=== PATIENT | male | born 1980 ===

== ENCOUNTER 2017-11-13 23:23 | Emergency (ER) | payer OTHER ==
[2017-11-13 23:33] VITALS: TEMP 98.9
[2017-11-13] MEDS ORDERED: Sodium Chloride 0.9% 1,000 ML IV STA (23:46)
--- NOTE | 2017-11-13 23:47 | ED PDOC ---
HPI: General Adult Time Seen by Provider: 11/13/17 23:46 Chief Complaint (Nursing): Back Pain Chief Complaint (Provider): flank pain History Per: Patient, Family (patient's brother at bedside is translating for patient in [place]) Additional Complaint(s): 37-year-old male with no past medical history presents to emergency department with acute onset of left flank pain that radiates to left lower quadrant starting about 4 hours ago. Patient is nauseous with no vomiting, no fever or chills. Patient arrives with his brother. PMD: none Past Medical History Reviewed: Historical Data, Nursing Documentation, Vital Signs Vital Signs: Last Vital Signs Temp 98.9 F 11/13/17 23:30 Pulse 91 H 11/13/17 23:30 Resp 16 11/13/17 23:30 BP 131/65 11/13/17 23:30 Pulse Ox 100 11/14/17 01:14 - Medical History PMH: No Chronic Diseases - Surgical History Surgical History: No Surg Hx - Family History Family History: States: No Known Family Hx - Living Arrangements Living Arrangements: With Family - Social History Current smoker - smoking cessation education provided: No Alcohol: None Drugs: Denies - Immunization History Hx Tetanus Toxoid Vaccination: No (pt does not remember last vaccine) - Home Medications Home Medications: Ambulatory Orders Medication Instructions Recorded Naproxen 500 mg PO Q12 #28 tab 08/25/15 Naproxen [Naprosyn] 500 mg PO BID #20 tab 11/14/17 Tamsulosin [Flomax] 0.4 mg PO DAILY #7 cap 11/14/17 - Allergies Allergies/Adverse Reactions: Allergies Allergy/AdvReac Type Severity Reaction Status Date / Time No Known Allergies Allergy Verified 11/13/17 23:30 Review of Systems ROS Statement: Except As Marked, All Systems Reviewed And Found Negative Constitutional: Negative for: Fever, Chills Gastrointestinal: Positive for: Nausea, Abdominal Pain. Negative for: Vomiting Genitourinary Male: Negative for: Dysuria, Frequency, Incontinence, Hematuria Musculoskeletal: Positive for: Back Pain Physical Exam - Reviewed Nursing Documentation Reviewed: Yes Vital Signs Reviewed: Yes - Physical Exam Appears: Positive for: Well, Non-toxic, In Acute Distress Skin: Negative for: Rash Eye Exam: Positive for: Normal appearance Cardiovascular/Chest: Positive for: Regular Rate, Rhythm Respiratory: Positive for: Normal Breath Sounds Gastrointestinal/Abdominal: Positive for: Soft, Tenderness (left lower quadrant) . Negative for: Distended, Guarding, Rebound Back: Positive for: L CVA Tenderness. Negative for: R CVA Tenderness, Vertebral Tenderness Extremity: Positive for: Normal ROM Neurologic/Psych: Positive for: Alert, Oriented - Laboratory Results Result Diagrams: 11/14/17 00:02 11/14/17 00:02 Urine dip results: Positive for: Blood (small), Ketones. Negative for: Leukocyte Esterase, Nitrate, Glucose, Bilirubin, Protein - ECG O2 Sat by Pulse Oximetry: 100 Pulse Ox Interpretation: Normal - Other Rad CT abd and pelvis without contrast X-Ray: Read By Radiologist X-Ray Interpretation: see below Medical Decision Making Medical Decision Makin37 year old male with left flank pain Plan: CBC CMP IVF IV zofran IV toradol CT abdomen and pelvis without contrast Urine dip CT: FINDINGS: Limitations: Lack of intravenous contrast. Lower thorax: Minimal atelectasis/scarring. RLL calcified granuloma. ABDOMEN: Liver: Unremarkable. Gallbladder and bile ducts: No calcified stones. No ductal dilation. Pancreas: Unremarkable. No ductal dilation. Spleen: No splenomegaly. Adrenals: No mass. Kidneys and ureters: No renal calculi. Mild pelvocaliectasis of LEFT kidney. Mildly dilated LEFT ureter. 0.2 x 0.2 x 0.2 cm calculus at/near LEFT ureterovesical junction. Stomach and bowel: Probable underdistention of LEFT colon. No definite mural thickening. No obstruction. Appendix: Normal caliber. No inflammation. PELVIS: Bladder: Unremarkable. No stones. Reproductive : Unremarkable as visualized. ABDOMEN and PELVIS: Intraperitoneal space: No significant fluid collection. No free air. Bones/joints: No acute fracture. Soft tissues: Unremarkable. Vasculature: Unremarkable. No aneurysm. Lymph nodes : No pathologically enlarged lymph nodes. IMPRESSION: 1. LEFT distal ureteral calculus with mild hydroureteronephrosis. 2. Incidental/non-acute findings are described above. Patient feels better after meds were given in ED. He is aware of CT results. All questions answered. Prescriptions given for Flomax and Naprosyn. Patient was referred to clinic and urology computational biologist for follow up. Disposition - Clinical Impression Clinical Impression: Ureteral colic - Patient ED Disposition Is Patient to be Admitted: No Counseled Patient/Family Regarding: Studies Performed, Diagnosis, Need For Followup, Rx Given - Disposition Referrals: [facility] [Provider Group] Jael Allen MD [Medical Doctor] - Disposition: Routine/Home Disposition Time: 02:19 Condition: IMPROVED Additional Instructions: Drink plenty of fluids. Take meds as directed. Follow up with clinic or with urologist. Prescriptions: Naproxen [Naprosyn] 500 mg PO BID #20 tab Tamsulosin [Flomax] 0.4 mg PO DAILY #7 cap Instructions: Renal Colic (DC) Forms: [employer] (Australian) Print Language: GAMBIAN Results - Lab Results Lab Results: 11/14/17 11/14/17 00:02 00:02 WBC 14.4 H RBC 4.87 Hgb 14.5 Hct 42.4 MCV 87.0 MCH 29.7 MCHC 34.1 RDW 13.2 Plt Count 268 MPV 8.9 Neut % (Auto) 75.9 H Lymph % (Auto) 14.5 L Storey % (Auto) 7.7 Eos % (Auto) 1.0 Baso % (Auto) 0.9 Neut # (Auto) 11.0 H Lymph # (Auto) 2.1 Storey # (Auto) 1.1 H Eos # (Auto) 0.1 Baso # (Auto) 0.1 Sodium 141 Potassium 4.4 Chloride 100 Carbon Dioxide 28 Anion Gap 17 BUN 20 Creatinine 1.2 Est GFR ( Amer) > 60 Est GFR (Non-Af Amer) > 60 Random Glucose 123 H Calcium 9.8 Total Bilirubin 0.5 AST 36 ALT 46 Alkaline Phosphatase 69 Total Protein 7.8 Albumin 4.5 Globulin 3.4 Albumin/Globulin Ratio 1.3
[2017-11-14 00:06] LABS: BASO # 0.1 K/uL (0.0-0.2); BASO % 0.9 % (0.0-2.0); EOS # 0.1 K/uL (0.0-0.7); HEMOGLOBIN 14.5 g/dL (12.0-18.0); LYMPH # 2.1 K/uL (1.0-4.3); LYMPH % 14.5 % (20.0-40.0); MEAN CORPUSCULAR HEMOGLOBIN 29.7 pg (27.0-31.0); MEAN CORPUSCULAR HGB CONC 34.1 g/dL (33.0-37.0); MEAN PLATELET VOLUME 8.9 fl (7.2-11.7); MONO # 1.1 K/uL (0.0-0.8); MONO % 7.7 % (0.0-10.0); NEUT % 75.9 % (50.0-75.0); NRBC % 0.1 % (0.0-0.0); RBC 4.87 Mil/uL (4.40-5.90); RED CELL DISTRIBUTION WIDTH 13.2 % (11.5-14.5); WHITE BLOOD COUNT 14.4 K/uL (4.8-10.8)
[2017-11-14 00:14] LABS: ALB/GLOB RATIO 1.3 (1.0-2.1); ALBUMIN 4.5 g/dL (3.5-5.0); ALT/SGPT 46 U/L (21-72); AST/SGOT 36 U/L (17-59); BLOOD UREA NITROGEN 20 mg/dl (9-20); CALCIUM 9.8 mg/dL (8.4-10.2); GFR AFRICAN-AMERICAN > 60; GFR NON-AFRICAN AMERICAN > 60
--- NOTE | 2017-11-14 01:01 | CT ---
EXAM: CT Abdomen and Pelvis Without Intravenous Contrast CLINICAL HISTORY: 37 years old, male; Pain; Abdominal pain; Flank; Left; Additional info: Left flank pain TECHNIQUE: Axial computed tomography images of the abdomen and pelvis without intravenous contrast. All CT scans at this facility use one or more dose reduction techniques, viz.: automated exposure control; ma/kV adjustment per patient size (including targeted exams where dose is matched to indication; i.e. head); or iterative reconstruction technique. Coronal and sagittal reformatted images were created and reviewed. COMPARISON: No relevant prior studies available. FINDINGS: Limitations: Lack of intravenous contrast. Lower thorax: Minimal atelectasis/scarring. RLL calcified granuloma. ABDOMEN: Liver: Unremarkable. Gallbladder and bile ducts: No calcified stones. No ductal dilation. Pancreas: Unremarkable. No ductal dilation. Spleen: No splenomegaly. Adrenals: No mass. Kidneys and ureters: No renal calculi. Mild pelvocaliectasis of LEFT kidney. Mildly dilated LEFT ureter. 0.2 x 0.2 x 0.2 cm calculus at/near LEFT ureterovesical junction. Stomach and bowel: Probable underdistention of LEFT colon. No definite mural thickening. No obstruction. Appendix: Normal caliber. No inflammation. PELVIS: Bladder: Unremarkable. No stones. Reproductive: Unremarkable as visualized. ABDOMEN and PELVIS: Intraperitoneal space: No significant fluid collection. No free air. Bones/joints: No acute fracture. Soft tissues: Unremarkable. Vasculature: Unremarkable. No aneurysm. Lymph nodes: No pathologically enlarged lymph nodes. IMPRESSION: 1. LEFT distal ureteral calculus with mild hydroureteronephrosis. 2. Incidental/non-acute findings are described above.
[2017-11-14] MEDS ORDERED: Sodium Chloride 0.9% 1,000 ML IV STA (01:14)
[2017-11-14 03:57] VITALS: BP 116/80; PULSE 72; RESP 20; O2SAT 98
== END 2017-11-14 03:56 | disposition home or self-care (01) ==
LOC: H.ER 23:23
DX: N13.2 Hydronephrosis with renal and ureteral calculous obstruction (principal)
CPT/HCPCS: 74176; 80053; 85025; 96360; 99283; J1885; J2405; J7040

== ENCOUNTER 2018-04-05 12:27 | Emergency (ER) | payer OTHER ==
[2018-04-05 12:40] VITALS: BP 131/75; PULSE 55; RESP 16; TEMP 98.7; O2SAT 100
[2018-04-05] MEDS ORDERED: Tdap Vaccine 0.5 ml Vial (10-64 yrs) IM ONE ×2 (12:47→13:36)
[2018-04-05] MEDS ORDERED: Liquid Adhesive TOP ONE (12:53)
--- NOTE | 2018-04-05 13:09 | ED PDOC ---
HPI: Head Injury Time Seen by Provider: 04/05/18 12:42 Chief Complaint (Nursing): Abnormal Skin Integrity History Per: Patient Additional Complaint(s): Pt. states earlier today at approximately 1000 he was playing soccer when he was accidentally struck in the nose by another player with their forearm. Since then he's had pain and swelling to the nose. Denies LOC, headache, N/V, neck pain, other injury, anticoagulant use. Past Medical History Reviewed: Historical Data, Nursing Documentation, Vital Signs Vital Signs: Last Vital Signs Temp 98.7 F 04/05/18 12:38 Pulse 55 L 04/05/18 12:38 Resp 16 04/05/18 12:38 BP 131/75 04/05/18 12:38 Pulse Ox 100 04/05/18 12:38 - Family History Family History: States: Unknown Family Hx - Immunization History Hx Tetanus Toxoid Vaccination: No (pt does not remember last vaccine) - Home Medications Home Medications: Ambulatory Orders Medication Instructions Recorded Naproxen 500 mg PO Q12 #28 tab 08/25/15 Naproxen [Naprosyn] 500 mg PO BID #20 tab 11/14/17 Tamsulosin [Flomax] 0.4 mg PO DAILY #7 cap 11/14/17 Amoxicillin/Clavulanate [Augmentin 1 tab PO BID #20 tab 04/05/18 500 MG-125 MG] - Allergies Allergies/Adverse Reactions: Allergies Allergy/AdvReac Type Severity Reaction Status Date / Time No Known Allergies Allergy Verified 11/13/17 23:30 Review of Systems ROS Statement: Except As Marked, All Systems Reviewed And Found Negative ENT: Positive for: Nose Pain Physical Exam - Physical Exam Appears: Positive for: Well, Non-toxic, No Acute Distress Skin: Positive for: Normal Color, Warm. Negative for: Rash Eye Exam: Positive for: Normal appearance, EOMI, PERRL. Negative for: Periorbital swelling, Periorbital tenderness ENT: Positive for: TM Is/Are (no hemotympanum b/l), Other (moderate nasal swelling and tenderness; 0.5cm superficial slightly linear laceration without active bleeding; no septal hematoma b/l) Neck: Positive for: Normal, Painless ROM Neurologic/Psych: Positive for: Alert, Oriented (x3), Gait (steady, unassisted) . Negative for: Aphasia, Facial Droop - ECG O2 Sat by Pulse Oximetry: 100 - Progress ED Course And Treament: Tetanus prophylaxis administered as pt. does not know his tetanus status. Nasal bones x-rays ordered. Procedures - Time-Out Type of Procedure: Laceration repair Site of Procedure: nose Correct Patient (with visual ID + MR# on ID Band): Yes Correct Procedure: Yes PA/Tech: [place] - Laceration/Wound Repair Laceration repair Wound Length (cm): 1 Wound's Depth, Shape: superficial, linear Wound Explored: clean Irrigated w/ Saline (ccs): 50 Wound Repaired With: Skin adhesive Wound Complexity: Simple Disposition - Clinical Impression Clinical Impression: Nasal fracture, Head injury, Facial laceration - Patient ED Disposition Is Patient to be Admitted: No - Disposition Referrals: [facility] [place] [Outside] Gregg Carias MD [Staff Provider] - Disposition: Routine/Home Disposition Time: 13:44 Condition: IMPROVED Additional Instructions: NATALIE WARD, thank you for letting us take care of you today. Your provider was Yuriy Becerra MD and you were treated for LACERATION ON NOSE. The emergency medical care you received today was directed at your acute symptoms. If you were prescribed any medication, please fill it and take as directed. It may take several days for your symptoms to resolve. Return to the Emergency Department if your symptoms worsen, do not improve, or if you have any other problems. Please contact your doctor or call one of the physicians/clinics you have been referred to that are listed on the Patient Visit Information form that is included in your discharge packet. Bring any paperwork you were given at discharge with you along with any medications you are taking to your follow up visit. Our treatment cannot replace ongoing medical care by a primary care provider outside of the emergency department. Thank you for allowing the [facility] team to be part of your care today. If you had an X-Ray or CT scan: A Radiologist will review the ED reading if any change in treatment is needed we will contact you. If you had a blood, urine, or wound culture: It will take several days for the results, if any change in treatment is needed we will contact you. If you had an STI test: It will take 48 hours for the results. Please call after 1 week if you have not heard back. Prescriptions: Amoxicillin/Clavulanate [Augmentin 500 MG-125 MG] 1 tab PO BID #20 tab Instructions: Laceration Repair With Glue (DC), Closed Head Injury (DC), Nose Fracture (DC) Forms: [employer] (Japanese) Print Language: HUNGARIAN
--- NOTE | 2018-04-05 14:47 | RAD ---
Date of service: 04/05/2018 PROCEDURE: Radiographs of Nasal Bones HISTORY: trauma COMPARISON: None available. TECHNIQUE: Frontal and lateral radiographs of the nasal bones. FINDINGS: There is a depressed comminuted distal nasal fracture. The bony nasal septum appears intact. The anterior maxillary spine appears intact. IMPRESSION: Comminuted, depressed nasal fracture.
== END 2018-04-05 13:55 | disposition home or self-care (01) ==
LOC: H.ER 12:27
DX: S01.81XA Laceration without foreign body of other part of head, initial encounter (principal); S02.2XXA Fracture of nasal bones, initial encounter for closed fracture; W22.8XXA Striking against or struck by other objects, initial encounter; Y93.66 Activity, soccer

== ENCOUNTER 2018-10-26 06:35 | Emergency (ER) | payer OTHER ==
[2018-10-26 06:45] VITALS: TEMP 97.7; O2SAT 100
[2018-10-26 06:48] VITALS: BMI 24.2
[2018-10-26 06:58] VITALS: RESP 18
--- NOTE | 2018-10-26 07:32 | ED PDOC ---
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 Patient reports pain on the right side but states he will occasionally have left sided back pain too. Nothing aggravates or alleviates or pain. Patient states he did not take any medication for symptoms. Patient was seen on 11/14/17 for left flank pain and was diagnosed with kidney stones. He denies any fever, chills, nausea, vomit, abdominal pain, weakness, numbness or tingling, incontinence or urinary symptoms. No further medical comp laints. PMD: None provided. Past Medical History Reviewed: Historical Data, Nursing Documentation, Vital Signs Vital Signs: Last Vital Signs Temp 97.7 F 10/26/18 06:48 Pulse 56 L 10/26/18 06:48 Resp 18 10/26/18 06:48 BP 121/75 10/26/18 06:48 Pulse Ox 100 10/26/18 06:48 - Medical History PMH: Kidney Stones - Surgical History Surgical History: No Surg Hx - Family History Family History: States: Unknown Family Hx - Social History Current smoker - smoking cessation education provided: No Alcohol: Social Drugs: Denies - Immunization History Hx Tetanus Toxoid Vaccination: No (pt does not remember last vaccine) - Home Medications Home Medications: Ambulatory Orders Medication Instructions Recorded Ibuprofen [Motrin] 600 mg PO Q6H PRN #20 tab 10/26/18 - Allergies Allergies/Adverse Reactions: Allergies Allergy/AdvReac Type Severity Reaction Status Date / Time No Known Allergies Allergy Verified 10/26/18 06:48 Review of Systems ROS Statement: Except As Marked, All Systems Reviewed And Found Negative Constitutional: Negative for: Fever, Chills Gastrointestinal: Negative for: Nausea, Vomiting, Abdominal Pain, Constipation Genitourinary Male: Negative for: Dysuria, Frequency, Incontinence, Hematuria Musculoskeletal: Positive for: Back Pain Neurological: Negative for: Weakness, Numbness (tingling) Physical Exam - Reviewed Nursing Documentation Reviewed: Yes Vital Signs Reviewed: Yes - Physical Exam Appears: Positive for: No Acute Distress Head Exam: Positive for: ATRAUMATIC, NORMAL INSPECTION, NORMOCEPHALIC Skin: Positive for: Normal Color, Warm, Dry Eye Exam: Positive for: Normal appearance, EOMI, PERRL Neck: Positive for: Normal, Painless ROM Cardiovascular/Chest: Positive for: Regular Rate, Rhythm. Negative for: Murmur Respiratory: Positive for: Normal Breath Sounds. Negative for: Respiratory Distress Gastrointestinal/Abdominal: Positive for: Normal Exam, Soft. Negative for: Tenderness, Guarding, Rebound Back: Positive for: Normal Inspection. Negative for: L CVA Tenderness, R CVA Tenderness, Vertebral Tenderness Extremity: Positive for: Normal ROM (upper and lower extremities). Negative for: Tenderness, Deformity, Swelling Neurologic/Psych: Positive for: Alert, Oriented. Negative for: Motor/Sensory Deficits - Laboratory Results Result Diagrams: 10/26/18 07:40 10/26/18 07:40 - ECG O2 Sat by Pulse Oximetry: 100 (RA) Pulse Ox Interpretation: Normal Medical Decision Making Medical Decision Making: Time: 07:10 Initial Impression: back pain Initial Plan: --Urine dipstick --CMP --Urine dipstick --CBC w/ differential --Toradol 15 mg IV --NaCl 1,000 ml V 1,000 mls/hr --Urinalysis --Renal [US] --Reevaluation 09:19 Renal US FINDINGS: RIGHT KIDNEY: Measures: 9.9 cm. Normal in size, contour and echogenicity. No stone, solid mass lesion or hydronephrosis visualized. LEFT KIDNEY: Measures: 10.4 cm. Normal in size, contour and echogenicity. No stone, solid mass lesion or hydronephrosis visualized. OTHER FINDINGS: None. IMPRESSION: Normal examination. 11:03 -Labs show no clinical significant abnormalities and patient reports feeling better. At this time patient requires no further medical treatment in the ED and is medically stable for discharge home. Counseling was provided and all questions were answered regarding diagnosis and need for follow up with clinic. There is agreement to discharge plan. Return if symptoms persist or worsen. Scribe Attestation: Documented by Brett Bustos, acting as a scribe for Bev Tello MD Provider Scribe Attestation: All medical record entries made by the Scribe were at my direction and personally dictated by me. I have reviewed the chart and agree that the record accurately reflects my personal performance of the history, physical exam, medical decision making, and the department course for this patient. I have also personally directed, reviewed, and agree with the discharge instructions and disposition. Disposition - Clinical Impression Clinical Impression: Back pain - Disposition Referrals: [facility] [Outside] Disposition: Routine/Home Disposition Time: 11:03 Condition: STABLE Prescriptions: Ibuprofen [Motrin] 600 mg PO Q6H PRN #20 tab PRN Reason: Pain, Moderate (4-7) Instructions: Upper Back Pain Forms: [employer] (Angolan) Print Language: SYRIAC
[2018-10-26] MEDS ORDERED: Sodium Chloride 0.9% 1,000 ML IV STA (07:33)
[2018-10-26 08:06] LABS: BASO % 0.7 % (0.0-2.0); EOS # 0.2 K/uL (0.0-0.7); EOS % 4.4 % (0.0-4.0); HEMOGLOBIN 15.3 g/dL (12.0-18.0); LYMPH # 1.7 K/uL (1.0-4.3); LYMPH % 31.7 % (20.0-40.0); MEAN CELL VOLUME 87.1 fl (80.0-94.0); MEAN CORPUSCULAR HEMOGLOBIN 29.1 pg (27.0-31.0); MEAN CORPUSCULAR HGB CONC 33.4 g/dL (33.0-37.0); MEAN PLATELET VOLUME 8.9 fl (7.2-11.7); MONO # 0.6 K/uL (0.0-0.8); MONO % 11.3 % (0.0-10.0); NEUT # 2.8 K/uL (1.8-7.0); NEUT % 51.9 % (50.0-75.0); RBC 5.25 Mil/uL (4.40-5.90); RED CELL DISTRIBUTION WIDTH 13.1 % (11.5-14.5); WHITE BLOOD COUNT 5.4 K/uL (4.8-10.8)
[2018-10-26 08:34] LABS: SQUAMOUS EPITHIAL < 1 /hpf (0-5); URINE BILIRUBIN NEGATIVE (NEGATIVE); URINE BLOOD NEGATIVE (NEGATIVE); URINE CLARITY SLIGHTY-CLOUDY (Clear); URINE COLOR YELLOW (YELLOW); URINE GLUCOSE (UA) NEG (NEGATIVE); URINE LEUKOCYTE ESTERASE NEG Leu/uL (Negative); URINE PROTEIN NEGATIVE (NEGATIVE); URINE UROBILINOGEN 0.2-1.0 mg/dL (0.2-1.0)
[2018-10-26 09:20] LABS: ALB/GLOB RATIO 1.2 (1.0-2.1); ALBUMIN 4.4 g/dL (3.5-5.0); ALT/SGPT 40 U/L (21-72); AST/SGOT 36 U/L (17-59); BLOOD UREA NITROGEN 17 mg/dl (9-20); CALCIUM 9.4 mg/dL (8.4-10.2); GFR NON-AFRICAN AMERICAN > 60
--- NOTE | 2018-10-26 09:23 | US ---
Date of service: 10/26/2018 PROCEDURE: Ultrasound of the Kidneys HISTORY: Bilateral flank pain COMPARISON: None available. TECHNIQUE: Grayscale imaging was performed. FINDINGS: RIGHT KIDNEY: Measures: 9.9 cm. Normal in size, contour and echogenicity. No stone, solid mass lesion or hydronephrosis visualized. LEFT KIDNEY: Measures: 10.4 cm. Normal in size, contour and echogenicity. No stone, solid mass lesion or hydronephrosis visualized. OTHER FINDINGS: None. IMPRESSION: Normal examination.
[2018-10-26 11:37] VITALS: BP 126/71; PULSE 62
== END 2018-10-26 11:10 | disposition home or self-care (01) ==
LOC: H.ER 06:35
DX: M54.9 Dorsalgia, unspecified (principal)
CPT/HCPCS: 76770; 80053; 81003; 85025; 96361; 96374; 99285; J1885; J7030